=== PATIENT | female | born 1950 | race Hispanic/Latino ===

== ENCOUNTER 2022-11-07 14:19 | Outpatient (CLI) | payer OTHER | END 2022-11-07 14:20 | disposition home or self-care (01) | LOC: BICRAD 14:19 | PROVIDERS: ATTEND Family Medicine | DX: R07.81 Pleurodynia (principal) ==

== ENCOUNTER 2023-06-15 16:11 | Emergency (ER) | payer SELFPAY | END 2023-06-15 18:40 | disposition home or self-care (01) | LOC: ERS 16:11 | DX: S01.01XA Laceration without foreign body of scalp, initial encounter (principal); I10 Essential (primary) hypertension; E11.9 Type 2 diabetes mellitus without complications; W22.8XXA Striking against or struck by other objects, initial encounter | CPT/HCPCS: 12001; 70450; 72125 ==

== ENCOUNTER 2023-06-23 09:05 | Emergency (ER) | payer SELFPAY | END 2023-06-23 09:43 | disposition home or self-care (01) | LOC: ERS 09:05 | DX: S01.01XD Laceration without foreign body of scalp, subsequent encounter (principal); W18.30XD Fall on same level, unspecified, subsequent encounter ==